=== PATIENT | male | born 1950 | race Caucasian/White ===

== ENCOUNTER → 2017-12-18 | Day surgery (SDC) | payer OTHER, MEDICARE ==
[~2017-12-18] VITALS: Ht 172.7 cm; Wt 90.7 kg
[~2017-12-18] MED LIST: 8 HOUR650 MG PO; AMOXICILLIN500 M3 PO; ASPIRIN EC81 M1 PO; FENOFIBRATE145 M1 PO; HYDRALAZINE HCL25 M1 PO; HYDROCHLOROTHIA25 M1 PO; LISINOPRIL10 M1 PO; MULTIVITAMINS1 EAC9 PO; NIASPAN1000 M1 PO; OXYCODONE HCL5 M1 PO; TOPROL XL25 M1 PO; VITAMIN D1000 UNI1 PO
--- NOTE | 2017-12-18 13:19 | Operative Report ---
Operative/Inv Procedure Report Surgery Date: 12/18/17 Name of Procedure: Repair right peroneal brevis tendon Pre-Operative Diagnosis: Right peroneal brevis tendon tear Post-Operative Diagnosis: Same Estimated Blood Loss: scant Surgeon/Malware Analyst: Daniel Hager MD Anesthesia: moderate sedation, block IV Fluids: See anesthesia record Implants: None Drains: None Specimens: Right peroneal tendon Tourniquet: 41 minutes Complications: None Condition: Stable Operative Indication: Patient's [age] male is been having chronic lateral ankle pain for several months. An MRI confirmed a tear of the right peroneal brevis tendon. He was indicated for surgical repair. The risks and benefits of procedure discussed the patient detail. Operative/Procedure Note Note: Once informed consent was obtained and the correct limb was identified the patient was taken to the operating room and placed on the table. He is placed in a semilateral position left lateral decubitus on a beanbag. A thigh tourniquet was placed in left lower family is prepped and draped usual sterile fashion. At the administration of significant sedation the patient had already received a previous popliteal nerve block the the incision was made just posterior to the distal fibula on the right ankle and carried out distally towards the base the fifth metatarsal. Sharp dissection was carried down to skin and subcutaneous tissue. The peroneal retinaculum was incised distal to the fibula. The tendons were inspected there was a partial tear of the peroneal brevis tendon. The torn tissue was removed and passed off as specimen. Once this was done I was able to tubularize the tendon with a 4-0 running Prolene suture. This allowed excellent repair of the torn tendon. The tendons were placed back in their anatomic position posterior to the fibula. The wound was copiously irrigated with sterile saline. The retinaculum was repaired with 0 Vicryl interrupted sutures. Subcutaneous tissues closed with 3-0 Vicryl interrupted sutures and the skin was closed with 3-0 nylon interrupted sutures. A sterile dressing and splint was applied and the patient was awakened taken recovery in stable condition.
== END ==
LOC: STS 01:09
DX: S86.311A Strain of muscle(s) and tendon(s) of peroneal muscle group at lower leg level, right leg, initial encounter (principal); X58.XXXA Exposure to other specified factors, initial encounter; I10 Essential (primary) hypertension; I49.3 Ventricular premature depolarization; M19.90 Unspecified osteoarthritis, unspecified site; I45.10 Unspecified right bundle-branch block; Z96.651 Presence of right artificial knee joint
CPT/HCPCS: J0131; J0690; J2250; J3490